=== PATIENT | female | born 1995 | race Caucasian/White ===

== ENCOUNTER 2016-07-06 20:00 | Emergency (ER) | payer OTHER ==
[2016-07-06 20:09] VITALS: BP 112/61
--- NOTE | 2016-07-06 20:32 | ERNOTE ---
Back Pain ER HPI Time Seen by Provider: 07/06/16 20:00 Source: patient Exam Limitations: no limitations Immunizations: IMMUNIZATION HX Immunizations Up to Date Yes History of Influenza Vaccine No Hx Pneumococcal Vaccination No Allergies/Adverse Reactions: Allergies ciprofloxacin [From Cipro] Allergy (Verified 07/06/16 20:09) ciprofloxacin HCl [From Cipro] Allergy (Verified 07/06/16 20:09) Home Medications: HOME MEDICATIONS Ibuprofen [Motrin] 600 mg PO Q6H PRN #90 tab 07/06/16 [Last Taken Unknown] Narrative: Pt states that she picked up a 20lbs toddler just prior to presentation to ED and felt a "twinge" in the middle aspect of her right back region. No radiation , pain is 5/10 and constant and pt states that there is a good chance that she is . She asks for a SERUM test as her Urine test at home was negative yesterday. she denies any fevers, chills, nausea or vomiting. she has no dysuria. Review of Systems - Review of Systems Constitutional: Present: no symptoms reported EYE: Present: no symptoms reported ENT: Present: no symptoms reported Respiratory: Present: no symptoms reported Cardiology: Present: no symptoms reported Gastrointestinal/Abdominal: Present: no symptoms reported Genitourinary: Present: no symptoms reported Musculoskeletal: Present: See HPI Skin: Present: no symptoms reported - Patient's Past Medical History Patient History - Medical: Kidney stone, UTI'S Patient History - Cardiac/Respiratory: No pertinent hx Patient History - Cancer: No Hx of Cancer Patient History - Surgical Procedures: T & A Patient History - Other: None LMP (females 10-50): 1 month - Social History Living Situations: home Abuse History: No History of abuse Psych History: No pertinent hx Smoking Status: Never smoker Alcohol Use: none Drug Use: none - Immunizations Immunizations Up to Date: Yes Hx Pneumococcal Vaccination: No History of Influenza Vaccine: No Physical Exam - Physical Exam General Appearance: Present: wd/wn, alert, no apparent distress Ears, Nose, Throat: Present: normal ENT inspection Neck: Present: normal inspection, nontender Respiratory: Present: no respiratory distress, normal breath sounds, no accessory muscle use, chest nontender, lungs clear Cardiovascular/Chest: Present: regular rate, rhythm, no murmur, normal peripheral pulses Back Exam: Present: normal inspection, normal range of motion - pt does have right paravertebral muscle tenderness and spasm on exam. When she moves in certain configurations she feels a discomfort in the right thoracic paravertebral region. Extremity Exam: Present: normal inspection, normal range of motion ED Progress - Results and Orders Patient's Lab Results:: I have reviewed the patient's lab results. - serum is negative for preg. - Vital Signs Patient's Vital Signs:: I have reviewed the patient's vital signs. Vital Signs: Vital Signs 07/06/16 20:06 Temperature 36.6 C Pulse Rate 70 Respiratory 16 Rate Blood Pressure 112/61 O2 Sat by Pulse 100 Oximetry - Progress/Reassessment Chief Complaint: Back Pain Departure Clinical Impression: Muscle spasm - Departure Disposition: Home self-care Condition: Good Instructions: Low Back Sprain With Rehab-SportsMed Additional Instructions: position of comfort and care with lifting, bending knees suggested Prescriptions: Ibuprofen [Motrin] 600 mg PO Q6H PRN #90 tab PRN Reason: Pain
[2016-07-06] MEDS ORDERED: KETOROLAC TROMETHAMINE 60 MG/2 ML VIAL IM ONE ×2 (20:55)
== END 2016-07-06 21:02 | disposition home or self-care (01) ==
LOC: ER 20:00
DX: M62.830 Muscle spasm of back (principal)

== ENCOUNTER 2017-02-01 17:50 | Emergency (ER) | payer SELFPAY ==
[2017-02-01] MEDS ORDERED: ONDANSETRON HCL/PF 2 MG/ML VIAL IV ONE (18:09)
[2017-02-01] MEDS ORDERED: NORMAL SALINE 1,000 ML IV ONE (18:09)
[2017-02-01] MEDS ORDERED: ONDANSETRON HCL/PF 2 MG/ML VIAL ONE (18:16)
--- NOTE | 2017-02-01 18:20 | ERNOTE ---
Medical Problem HPI - General Chief Complaint: Nausea/Vomiting Time Seen by Provider: 02/01/17 17:57 Source: patient, family Exam Limitations: no limitations - Immun/Allergies/Home Medications Immunizations: IMMUNIZATION HX Immunizations Up to Date Yes History of Influenza Vaccine Yes Hx Pneumococcal Vaccination No Allergies/Adverse Reactions: Allergies ciprofloxacin [From Cipro] Allergy (Verified 02/01/17 18:01) ciprofloxacin HCl [From Cipro] Allergy (Verified 02/01/17 18:01) Home Medications: HOME MEDICATIONS Ondansetron [Zofran Odt] 4 mg PO Q6H PRN #20 tab 02/01/17 [Last Taken Unknown] Clr221/Iron Fumarate/FA/Dss [ 19 Tablet] 1 each PO DAILY 02/01/17 [Last Taken Unknown] - History of Present History Narrative: Patient complains of nausea vomiting and diarrhea that started approximately 4: 00 this morning. Patient states she is having some difficulty keeping any fluids down and she is 21 weeks she want's to make sure she is not dehydrated. She complains of moderate pain mostly in the epigastric area. Timing: intermittent Severity: moderate Review of Systems - Review of Systems Constitutional: Present: See HPI EYE: Present: no symptoms reported ENT: Present: no symptoms reported Respiratory: Present: no symptoms reported Cardiology: Present: no symptoms reported Gastrointestinal/Abdominal: Present: nausea, vomiting, diarrhea, abdominal pain - epigastric Genitourinary: Present: no symptoms reported Musculoskeletal: Present: no symptoms reported Skin: Present: no symptoms reported Neurological: Present: no symptoms reported Endocrine: Present: no symptoms reported Hematologic/Lymphatic: Present: no symptoms reported Psych: Present: no symptoms reported - Patient's Past Medical History Patient History - Medical: Kidney stone, UTI'S Patient History - Cardiac/Respiratory: No pertinent hx Patient History - Cancer: No Hx of Cancer Patient History - Surgical Procedures: T & A Patient History - Other: None - Social History Abuse History: No History of abuse Psych History: No pertinent hx Smoking Status: Never smoker - Immunizations Immunizations Up to Date: Yes Hx Pneumococcal Vaccination: No History of Influenza Vaccine: Yes Physical Exam - Physical Exam General Appearance: Present: wd/wn, alert, moderate distress Head Exam: Present: normal inspection Eye Exam: Normal inspection: bilateral, PERRL: bilateral Ears, Nose, Throat: Present: normal pharynx, dry mucous membranes Neck: Present: normal inspection, nontender Respiratory: Present: no respiratory distress, normal breath sounds, no accessory muscle use, chest nontender, lungs clear Cardiovascular/Chest: Present: regular rate, rhythm, no murmur, normal peripheral pulses Gastrointestinal/Abdominal: Present: nondistended, soft, no organomegaly, tenderness - epigastric, abnormal bowel sounds - hyperactive Rectal Exam: Present: deferred Back Exam: Present: normal inspection, normal range of motion Extremity Exam: Present: normal inspection, non-tender, no edema, normal range of motion Neurological Exam: Present: alert, oriented, normal mood/affect Skin Exam: Present: normal color, warm/dry Lymphatic Exam: Present: no adenopathy ED Progress - Results and Orders Patient's Lab Results:: I have reviewed the patient's lab results. - Vital Signs Patient's Vital Signs:: I have reviewed the patient's vital signs. Vital Signs: Vital Signs 02/01/17 17:58 Temperature 36.6 C Pulse Rate 78 Respiratory 12 Rate Blood Pressure 116/48 O2 Sat by Pulse 100 Oximetry - Progress/Reassessment Chief Complaint: Nausea/Vomiting Progress:: Improved Plan - Plan Plan: While I can easily entertain the diagnosis of hyperemesis gravidarum I suspect the patient really has more of a viral gastroenteritis. She feels substantially better and we will send her home with a prescription for Zofran ODT and she will follow up with her OB as soon as possible. Departure Clinical Impression: Gastroenteritis - Departure Disposition: Home self-care Condition: Good Instructions: Viral Gastroenteritis, Adult, [id number] Additional Instructions: Call your OB for appointment Prescriptions: Ondansetron [Zofran Odt] 4 mg PO Q6H PRN #20 tab PRN Reason: Nausea And Vomiting
[2017-02-01 18:23] LABS: Hematocrit 34.8 % (37.0-47.0); Hemoglobin 11.9 gm/dL (12.5-16.0); Mean Cell Volume 90.9 fl (78-100); Mean Corpuscular Hemoglobin 31.1 pg (27-31); Mean Corpuscular Hgb Conc 34.2 g/dl (32-36); Mean Platelet Volume 9.9 fl (6.0-9.5); Neutrophil # 9.9 K/mm3 (1.3-6.0); Neutrophil % 87.6 % (42-75.0); Platelet Count 302 K/mm3 (150-450); Red Blood Count 3.83 M/mm3 (4.2-5.4); Red Cell Distribution Width 13.9 % (11.5-14.0); White Blood Count 11.3 K/mm3 (4.0-10.5)
[2017-02-01 18:36] LABS: Albumin * 3.3 gm/dl (3.4-5.0); Anion Gap 17.1 mmol/L (6.8-13.8); BUN/Creatinine Ratio 19.6 (9.0-21.6); Bilirubin, Total 0.8 mg/dL (0.0-1.1); Ca. Corrected For Albumin 8.9 mg/dL (8.4-10.2); Calcium * 8.7 mg/dL (7.9-10.9); Carbon Dioxide 21.4 mmol/L (24-32.6); Magnesium 1.7 mg/dL (1.2-2.8); Potassium 3.5 mmol/L (3.4-4.6); Total Protein 7.3 gm/dL (6.2-8.2)
[2017-02-01 19:44] VITALS: BP 116/66
== END 2017-02-01 19:46 | disposition home or self-care (01) ==
LOC: ER 17:50
DX: K52.9 Noninfective gastroenteritis and colitis, unspecified (principal); Z33.1 Pregnant state, incidental; Z3A.21 21 weeks gestation of pregnancy
CPT/HCPCS: 36415; 80053; 83735; 85025; 96374; 99284; J2405